=== PATIENT | female | born 1955 | race Caucasian/White ===

== ENCOUNTER → 2017-05-08 | Outpatient (CLI) | payer BC ==
[~2017-05-08] MED LIST: ALBUTEROL0.83 MG/ML NEB; ANTIDEPRESSANT; AZELASTINE137 MCG/0.; BENZONATATE PO; DOXYCYCLINE PO; EFFEXOR XR75 MG PO; EFFEXOR75 M1 PO; FLONASE 0.05% N16 G1; NEBULIZER1 KI1 MC; OMNICEF300 MG PO; PERFOROMIS20 MCG/2 M NEB; PREDNISONE PO; PREDNISONE10 MG PO; PROAIR HFA8.5 GM INH; PULMICORT0.5 MG/2 M INH; SEROQUEL300 M1 PO; SLEEPING MED; SPIRIVA18 MCG INH; SYMBICORT 160/4.6 G1 INH; SYMBICORT INH
== END | disposition home or self-care (01) ==
LOC: CSSDAY 09:00
DX: J45.909 Unspecified asthma, uncomplicated (principal); Z79.899 Other long term (current) drug therapy
CPT/HCPCS: 96372; J2182

== ENCOUNTER → 2017-05-15 | Outpatient (CLI) | payer BC ==
--- NOTE | ~2017-05-15 | MY25 ---
[facility] A Service of [facility] RADIOLOGY TEXT RESULTS PATIENT: STACEY LOOMIS LOCATION: [facility] : 57 UNIT #: [id number] AGE: [address]: Dhruv Peerz MD SEX: F ORDER DR: [id number] [facility] [address] [place], [place] [address] [id number] MR#: [id number] Acc #: [id number] NAME: STACEY LOOMIS. : 1955 SEX: F STUDY DATE/TIME: 05/15/2017 9:25 UNIT: [facility] ROOM: STUDY DESCRIPTION: NURYS CALI MARGEG W/ CAD UNI RT Attending Physician: Dhruv Perez M.D. Referring Physician: Dhruv Perez M.D. Ordering Physician: Dhruv Perez M.D. Primary Care Physician: Vincent Melendez M.D. MEDICAL IMAGING REPORT This report is preliminary unless electronic signature is present EXAM Diagnostic right mammogram 05/15/2017 INDICATION History of right breast cancer status post lumpectomy and radiation. Followup exam. FINDINGS Digital CC, MLO, and ML views of the right breast were obtained. Study is reviewed with an Meli[employer] CAD device. Comparison is made with 09/07/2015, 11/22/2016. Breast parenchyma shows scattered fibroglandular densities. The lumpectomy bed is stable. No new masses are seen. There are no suspicious microcalcifications. Findings were discussed with the patient at the time of her examination today. IMPRESSION Benign right mammogram. Patient should continue with routine bilateral follow up mammogram at her normal interval. Patient's over the age of 40 are entered into a reminder system with target due date for the next mammogram. BIRADS: 2 Benign findings Dictated by... Rohit Barnes Jr., M.D. THIS IS AN ELECTRONICALLY VERIFIED REPORT Rohit Barnes Jr., M.D. at 05/15/2017 5:19 PM RLK/[email or web address] [facility] A Service of [facility] RADIOLOGY TEXT RESULTS PATIENT: STACEY LOOMIS LOCATION: [facility] : 57 UNIT #: [id number] AGE: [address]: Dhruv Perez MD SEX: F ORDER DR: TD: 05/15/2017 13:43 JOB #: [id number] MEDICAL IMAGING REPORT Page 1 of 1 COPY
== END | disposition home or self-care (01) ==
LOC: CMAM 08:47
DX: Z08 Encounter for follow-up examination after completed treatment for malignant neoplasm (principal); Z85.3 Personal history of malignant neoplasm of breast; Z98.890 Other specified postprocedural states; Z92.3 Personal history of irradiation
CPT/HCPCS: G0206

== ENCOUNTER → 2017-06-28 | Outpatient (CLI) | payer BC | END | disposition home or self-care (01) | LOC: CSSDAY 09:30 | DX: J45.909 Unspecified asthma, uncomplicated (principal) | CPT/HCPCS: J2182 ==